=== PATIENT | female | born 1945 | race African-American/Black ===

== ENCOUNTER 2024-07-21 20:36 | Inpatient (IN) | payer OTHER ==
[2024-07-21 20:52] VITALS: BMI 28.3
[2024-07-21] MEDS ORDERED: NITROGLYCERIN SUBLINGUAL 1/150 0.4 MG TAB ONE (21:44)
[2024-07-21 21:46] LABS: VENOUS BASE EXCESS -1.5 mmol/L (-2-2); VENOUS O2 SATURATION 23.5 % (70-80); VENOUS PCO2 49.1 mmHg (38-52); VENOUS PH 7.32 (7.310-7.410)
[2024-07-21 21:47] LABS: BASO % 0.2 % (0-2.0); EOS % 0.9 % (0-4.5); HEMATOCRIT 24.5 % (32.4-45.2); HEMOGLOBIN 7.9 GM/dL (10.7-15.3); LYMPH % 13.9 % (8-40); MCH 28.1 pg (25.7-33.7); MCHC 32.3 g/dl (32.0-36.0); MEAN CELL VOLUME 87.2 fl (80-96); MEAN PLT VOLUME 8.8 fl (7.5-11.1); MONO % 4.5 % (3.8-10.2); NEUT % 80.5 % (42.8-82.8); PLATELET COUNT 219 10^3/uL (134-434); RBC 2.81 M/mm3 (3.60-5.2); RDW 16.2 % (11.6-15.6); WHITE BLOOD COUNT 7.4 K/mm3 (4.0-10.0)
[2024-07-21] MEDS: NITROGLYCERIN SUBLINGUAL 1/150 0.4 MG TAB SL ONE (21:53)
[2024-07-21 22:00] LABS: POTASSIUM 5.6 mmol/L (3.5-5.1)
[2024-07-21 22:02] LABS: ALBUMIN 2.2 g/dl (3.4-5.0); CALCIUM 8.5 mg/dL (8.5-10.1)
[2024-07-21 22:06] LABS: CREATININE 1.7 mg/dL (0.55-1.3)
[2024-07-21 22:07] LABS: BILIRUBIN,TOTAL 0.2 mg/dL (0.2-1); TOT PROT 5.9 g/dl (6.4-8.2)
[2024-07-22] MEDS ORDERED: FUROSEMIDE 40 MG/4 ML INJECTABLE VIAL ONE (00:36)
[2024-07-22] MEDS: FUROSEMIDE 40 MG/4 ML INJECTABLE VIAL IVPUSH ONE ×2 (00:39→18:55)
[2024-07-22 01:58] LABS: EPI CELLS 9 /uL (0-25.1); HYALINE CASTS 1 /uL (0-3.1); URINE APPEARANCE CLEAR; URINE BACTERIA 81 /uL (0-1359); URINE BILIRUBIN NEGATIVE (NEGATIVE); URINE COLOR YELLOW; URINE GLUCOSE (UA) NEGATIVE (NEGATIVE); URINE KETONE NEGATIVE (NEGATIVE); URINE LEUK ESTERASE 3+ (NEGATIVE); URINE NITRITE NEGATIVE (NEGATIVE); URINE PROTEIN NEGATIVE (NEGATIVE); URINE RBC 47 /uL (0-23.9); URINE UROBILINOGEN 0.2 mg/dL (0.2-1.0); URINE WBC 37 /uL (0-25.8)
[2024-07-22 02:16] LABS: MAGNESIUM 1.9 mg/dL (1.8-2.4)
[2024-07-22] MEDS ORDERED: LEVALBUTEROL HCL 0.63 MG/3 ML VIAL.NEB. IH PRN ×2 (02:21→19:19)
[2024-07-22] MEDS ORDERED: methylPREDNISolone NA SUCC 40 MG/1 ML VIAL ONE ×2 (02:26→10:17)
[2024-07-22] MEDS: methylPREDNISolone NA SUCC 1000 MG/8 ML VIAL IVPB SCH ×2 (02:54→12:12)
[2024-07-22] MEDS ORDERED: HEPARIN NA (PORCINE) 5,000 UNITS/ML 1ML VIAL SQ SCH (06:00)
[2024-07-22] MEDS: INSULIN ASPART SLIDING SCALE (NOVOLOG) 1 VIAL SQ SCH (06:55)
[2024-07-22] MEDS ORDERED: INSULIN ASPART SLIDING SCALE (NOVOLOG) 1 VIAL SQ SCH (07:00)
[2024-07-22 07:22] LABS: HEMATOCRIT 26.1 % (32.4-45.2); HEMOGLOBIN 8.7 GM/dL (10.7-15.3); MCH 28.6 pg (25.7-33.7); MCHC 33.2 g/dl (32.0-36.0); MEAN CELL VOLUME 86.1 fl (80-96); MEAN PLT VOLUME 9.2 fl (7.5-11.1); PLATELET COUNT 217 10^3/uL (134-434); RBC 3.03 M/mm3 (3.60-5.2); WHITE BLOOD COUNT 3.5 K/mm3 (4.0-10.0)
[2024-07-22 07:41] LABS: BLOOD UREA NITROGEN 72.9 mg/dL (7-18)
[2024-07-22 07:42] LABS: ALBUMIN 2.4 g/dl (3.4-5.0); CALCIUM 8.8 mg/dL (8.5-10.1)
[2024-07-22 07:45] LABS: CREATININE 1.7 mg/dL (0.55-1.3)
[2024-07-22 07:46] LABS: PHOSPHOROUS 5.7 mg/dL (2.5-4.9)
[2024-07-22 07:47] LABS: BILIRUBIN,TOTAL 0.4 mg/dL (0.2-1); TOT PROT 6.3 g/dl (6.4-8.2)
[2024-07-22 07:52] LABS: CHOLESTEROL 109 mg/dL (50-200)
[2024-07-22 07:53] LABS: IRON SERUM 14 ug/dL (50-175)
[2024-07-22 07:54] LABS: LDL CHOLESTEROL (ONLY SJRH) 32 mg/dL (5-100)
[2024-07-22 07:56] LABS: HDL CHOLESTEROL 65 mg/dL (40-60)
[2024-07-22] MEDS ORDERED: MAGNESIUM HYDROX 2400MG/30ML ORAL SUSPENSION 30 ML CUP PO PRN ×2 (08:38→19:19)
[2024-07-22] MEDS ORDERED: BISACODYL 10 MG SUPP.RECT PR PRN ×2 (08:38→19:19)
[2024-07-22] MEDS ORDERED: CEFTRIAXONE 1 GM in DEXTROSE 5%-WATER - 50 ML IVPB SCH (10:00)
[2024-07-22] MEDS ORDERED: POLYETHYLENE GLYCOL (HEALTHYLAX) 3350 17 GM PACKET ONE (10:16)
[2024-07-22] MEDS ORDERED: CARVEDILOL 25 MG TABLET (FP) ONE (10:17)
[2024-07-22] MEDS ORDERED: FOLIC ACID 1 MG TABLET (FP) ONE (10:17)
[2024-07-22] MEDS: CARVEDILOL 25 MG TABLET (FP) PO SCH ×2 (11:00→22:31)
[2024-07-22] MEDS: FOLIC ACID 1 MG TABLET (FP) PO SCH (11:00)
[2024-07-22] MEDS: POLYETHYLENE GLYCOL (HEALTHYLAX) 3350 17 GM PACKET PO SCH (11:00)
[2024-07-22] MEDS: BUDESONIDE/FORMETEROL FUMARATE 80/4.5 mcg INHALER IH SCH ×2 (12:02→23:24)
[2024-07-22] MEDS ORDERED: INSULIN ASPART SLIDING SCALE (NOVOLOG) 1 VIAL SQ ONE (12:05)
[2024-07-22] MEDS ORDERED: FUROSEMIDE 40 MG/4 ML INJECTABLE VIAL IVPUSH ONE (16:00)
[2024-07-22] MEDS ORDERED: ATORVASTATIN CA 40 MG TABLET (FP) PO SCH (22:00)
[2024-07-22] MEDS ORDERED: TAMSULOSIN HCL 0.4 MG CAP PO SCH (22:00)
[2024-07-22] MEDS: TAMSULOSIN HCL 0.4 MG CAP PO SCH (22:31)
[2024-07-22] MEDS: ATORVASTATIN CA 40 MG TABLET (FP) PO SCH (22:32)
[2024-07-23 06:53] LABS: BASO % 0.1 % (0-2.0); HEMOGLOBIN 7.7 GM/dL (10.7-15.3); LYMPH % 19.4 % (8-40); MCH 27.9 pg (25.7-33.7); MCHC 32.1 g/dl (32.0-36.0); MEAN CELL VOLUME 86.8 fl (80-96); MEAN PLT VOLUME 9.9 fl (7.5-11.1); MONO % 6.1 % (3.8-10.2); NEUT % 74.4 % (42.8-82.8); PLATELET COUNT 209 10^3/uL (134-434); RBC 2.76 M/mm3 (3.60-5.2); RDW 15.7 % (11.6-15.6); WHITE BLOOD COUNT 5.9 K/mm3 (4.0-10.0)
[2024-07-23 07:09] LABS: CHLORIDE 102 mmol/L (98-107); POTASSIUM 5.1 mmol/L (3.5-5.1); SODIUM 138 mmol/L (136-145)
[2024-07-23] MEDS: INSULIN ASPART SLIDING SCALE (NOVOLOG) 1 VIAL SQ SCH (07:13)
[2024-07-23 07:18] LABS: ANION GAP 11 mmol/L (4-13); BLOOD UREA NITROGEN 89.1 mg/dL (7-18); CALCIUM 8.5 mg/dL (8.5-10.1); CO2 25 mmol/L (21-32); GLUCOSE,RANDOM 243 mg/dL (74-106)
[2024-07-23 07:22] LABS: CREATININE 2.1 mg/dL (0.55-1.3)
[2024-07-23] MEDS: POLYETHYLENE GLYCOL (HEALTHYLAX) 3350 17 GM PACKET PO SCH (09:37)
[2024-07-23] MEDS: FOLIC ACID 1 MG TABLET (FP) PO SCH (09:37)
[2024-07-23 16:47] VITALS: BP 131/70; PULSE 88; RESP 18; TEMP 97.2
[2024-07-23] MEDS: FLU VACCINE (FLULAVAL) PF 45 MCG/0.5 ML SYRINGE 2024-2025 IM ONE (17:22)
== END 2024-07-23 18:17 | disposition short-term general hospital (02) | DRG 291 ==
LOC: JER 20:36 → JERBED 23:32 → J4W 07-22 15:41
PROVIDERS: ADMIT Internal Medicine; ATTEND Internal Medicine
DX: I13.2 Hypertensive heart and chronic kidney disease with heart failure and with stage 5 chronic kidney disease, or end stage renal disease (principal); I50.23 Acute on chronic systolic (congestive) heart failure; N18.6 End stage renal disease; N13.30 Unspecified hydronephrosis; J98.11 Atelectasis; E11.9 Type 2 diabetes mellitus without complications; D64.9 Anemia, unspecified; J44.9 Chronic obstructive pulmonary disease, unspecified; E78.5 Hyperlipidemia, unspecified; K86.89 Other specified diseases of pancreas; L89.152 Pressure ulcer of sacral region, stage 2
CPT/HCPCS: 0241U-QW; 36415; 71045-TC-FY; 71250-TC; 74176-TC; 76700-TC; 80048; 80053; 80061; 81003; 82550; 82728; 82803; 82962; 83036; 83540; 83550; 83735; 83880; 84100; 84443; 84484; 85025; 85027; 86705; 86709; 86803; 86850; 86900; 86901; 87086; 87340; 87517; 93005; 93010; 93306-TC; 94660; 99285-25

== ENCOUNTER 2025-03-05 09:36 | Inpatient (IN) | payer OTHER ==
[2025-03-05 11:40] LABS: ABSOLUTE IMMATURE GRANULOCYTES 0.02 x10^3/uL (0.0-0.031); BASOPHILS # 0.01 x10^3/uL (0.01-0.08); EOSINOPHIL % 0.5 % (0.7-5.8); EOSINOPHILS # 0.03 x10^3/uL (0.04-0.36); MCHC 30.5 g/dl (32.2-35.5); MEAN CELL VOLUME 92.4 fl (79.4-94.8); MEAN PLT VOLUME 10.6 fl (9.4-12.3); MONOCYTE # 0.42 x10^3/uL (0.24-0.86); MONOCYTE % 6.9 % (4.7-12.5); RDW 14.2 % (12.4-16.6)
[2025-03-05] MEDS: SODIUM CHLORIDE 0.9% 500 ML INFUS.BAG IV ONE (11:40)
[2025-03-05 11:43] LABS: EPI CELLS 3 /uL (0-25.1); HYALINE CASTS 1 /uL (0-3.1); URINE APPEARANCE CLOUDY; URINE BACTERIA 780 /uL (0-1359); URINE BILIRUBIN NEGATIVE (NEGATIVE); URINE COLOR YELLOW; URINE GLUCOSE (UA) NEGATIVE (NEGATIVE); URINE KETONE NEGATIVE (NEGATIVE); URINE LEUK ESTERASE 3+ (NEGATIVE); URINE NITRITE NEGATIVE (NEGATIVE); URINE PROTEIN 1+ (NEGATIVE); URINE RBC 145 /uL (0-23.9); URINE UROBILINOGEN 0.2 mg/dL (0.2-1.0); URINE WBC 2560 /uL (0-25.8)
[2025-03-05 11:49] LABS: INR 1.03 (0.83-1.09); PROTHROMBIN TIME (PATIENT) 11.3 SEC (9.7-13.0)
[2025-03-05 11:52] LABS: ACTIVATED PTT 26.3 SECONDS (25.2-36.5)
[2025-03-05 12:06] LABS: CO2 20.0 mmol/L (21-32); GLUCOSE,RANDOM 102.0 mg/dL (74-106)
[2025-03-05 12:09] LABS: CREATININE 2.4 mg/dL (0.55-1.3)
[2025-03-05 12:10] LABS: SGOT/AST 13.0 U/L (15-37)
[2025-03-05 12:11] LABS: TOT PROT 6.3 g/dl (6.4-8.2)
[2025-03-05 12:12] LABS: ALK PHOS 106.0 U/L (45-117)
[2025-03-05 12:16] LABS: SGPT/ALT 10.0 U/L (13-61)
[2025-03-05] MEDS: CEFTRIAXONE 1 GM in DEXTROSE 5%-WATER - 100 ML IVPB ONE (12:28)
[2025-03-05 13:04] LABS: HIV INTERPRETATION NEGATIVE (NEGATIVE)
[2025-03-05 13:05] LABS: HCV DIAGNOSTIC IN-HOUSE W/RFLX NON-REACTIVE (NONREACTIVE)
[2025-03-05] MEDS ORDERED: ACETAMINOPHEN 325 MG TABLET (FP) PO PRN (15:20)
[2025-03-05] MEDS ORDERED: ALBUTEROL SO4 2.5/IPRATROPIUM 0.5 INH SOL 3 ML VIAL.NEB. NEB PRN (15:20)
[2025-03-05] MEDS: METOCLOPRAMIDE HCL 10 MG TABLET (FP) PO SCH (16:30)
[2025-03-05] MEDS: ISOSORBIDE DINITRATE 20 MG TABLET PO SCH (18:00)
[2025-03-05] MEDS: CARVEDILOL 25 MG TABLET (FP) PO SCH (23:10)
[2025-03-05] MEDS: POLYETHYLENE GLYCOL (HEALTHYLAX) 3350 17 GM PACKET PO SCH (23:10)
[2025-03-05] MEDS: hydrALAZINE HCL 25 MG TABLET (FP) PO SCH (23:10)
[2025-03-06] MEDS: FUROSEMIDE 40 MG TABLET (FP) PO SCH (06:42)
[2025-03-06 08:50] LABS: ABSOLUTE IMMATURE GRANULOCYTES 0.02 x10^3/uL (0.0-0.031); BASOPHILS # 0.01 x10^3/uL (0.01-0.08); EOSINOPHIL % 0.4 % (0.7-5.8); EOSINOPHILS # 0.02 x10^3/uL (0.04-0.36); MCHC 30.0 g/dl (32.2-35.5); MEAN CELL VOLUME 93.2 fl (79.4-94.8); MEAN PLT VOLUME 11.9 fl (9.4-12.3); MONOCYTE # 0.42 x10^3/uL (0.24-0.86); MONOCYTE % 7.9 % (4.7-12.5); RDW 14.2 % (12.4-16.6)
[2025-03-06] MEDS: TAMSULOSIN HCL 0.4 MG CAP PO SCH (09:19)
[2025-03-06] MEDS: ATORVASTATIN CA 40 MG TABLET (FP) PO SCH (09:20)
[2025-03-06] MEDS: PANTOPRAZOLE 40 MG TABLET PO SCH (09:20)
[2025-03-06] MEDS: ASPIRIN COATED 81 MG TABLET.EC PO SCH (09:20)
[2025-03-06] MEDS ORDERED: VERICIGUAT 2.5 MG PO SCH (10:00)
[2025-03-06 10:36] LABS: CO2 20.0 mmol/L (21-32); GLUCOSE,RANDOM 81.0 mg/dL (74-106)
[2025-03-06 10:40] LABS: CREATININE 2.2 mg/dL (0.55-1.3); SGOT/AST 11.0 U/L (15-37); SGPT/ALT 9.0 U/L (13-61)
[2025-03-06 10:42] LABS: TOT PROT 5.9 g/dl (6.4-8.2)
[2025-03-06 10:43] LABS: ALK PHOS 98.0 U/L (45-117)
[2025-03-08] MEDS: FUROSEMIDE 40 MG TABLET (FP) PO SCH (10:58)
[2025-03-08 15:02] VITALS: BMI 19.7
[2025-03-08 16:04] VITALS: BP 110/65; PULSE 83; RESP 18; TEMP 97.8
== END 2025-03-08 17:32 | DRG 292 ==
LOC: JER 09:36 → JERBED 13:44 → OBSVTOIN 14:55 → J8W 17:55
PROVIDERS: ADMIT Internal Medicine; ATTEND Internal Medicine
DX: I13.0 Hypertensive heart and chronic kidney disease with heart failure and stage 1 through stage 4 chronic kidney disease, or unspecified chronic kidney disease (principal); I50.22 Chronic systolic (congestive) heart failure; N39.0 Urinary tract infection, site not specified; Z68.1 Body mass index [BMI] 19.9 or less, adult; E11.22 Type 2 diabetes mellitus with diabetic chronic kidney disease; E78.5 Hyperlipidemia, unspecified; E86.0 Dehydration; J44.9 Chronic obstructive pulmonary disease, unspecified; R33.9 Retention of urine, unspecified; N18.9 Chronic kidney disease, unspecified
CPT/HCPCS: 36415; 71045-TC-FY; 80053; 81003; 83036; 83735; 84484; 85025; 85610; 85730; 86803; 87086; 87389; 93005; 93010; 97116-GP; 97161-GP; 99285-25; G0378